=== PATIENT | male | born 1985 | race Caucasian/White ===

== ENCOUNTER → 2022-04-20 09:39 | Outpatient (CLI) | payer OTHER, SELFPAY ==
--- NOTE | 2022-04-20 09:41 | DI.RAD.S_ITS ---
PROCEDURE: XR RIBS LT MIN 3V W CXR1V INDICATIONS: left rib pain TECHNIQUE: 3 views of the left ribs were acquired, along with a single view chest. COMPARISON: None. FINDINGS: Surgical changes and devices: None. Bones and chest wall: There is appearance of a nondisplaced lateral 10th rib fracture. Lungs and pleura: No pleural effusions or pneumothorax. Lungs appear clear. Mediastinum: Mediastinal contours appear normal. Heart size is normal. IMPRESSION: Nondisplaced lateral 10th rib fracture. Dictated by: Tarah Carlson M.D. on 04/20/2022 at 9:55 Approved by: Tarah Carlson M.D. on 04/20/2022 at 9:56
== END ==
PROVIDERS: Referring Provider Registered Nurse; Visit Provider Registered Nurse
DX: R07.81 Pleurodynia (principal); S22.32XA Fracture of one rib, left side, initial encounter for closed fracture
CPT/HCPCS: 71101